=== PATIENT | male | born 1960 | race African-American/Black ===

== ENCOUNTER 2023-05-01 14:29 | Emergency (ER) | payer BC, SELFPAY | END 2023-05-01 15:09 | disposition home or self-care (01) | LOC: CSHERS 14:29 | DX: R51.9 Headache, unspecified (principal); I10 Essential (primary) hypertension; F17.210 Nicotine dependence, cigarettes, uncomplicated | CPT/HCPCS: 99283 ==

== ENCOUNTER 2023-06-23 14:40 | Emergency (ER) | payer OTHER ==
[~2023-06-23 14:40] MED LIST: Iopamidol 370 76% 100 ML VIAL ONE
[2023-06-23 15:21] LABS: #Monocytes 0.5 10x3/uL (0.0-1.1); #Neutrophils 9.2 10x3/uL (1.5-8.4); %Basophils 0.4 % (0.0-2.0); %Eosinophils 0.4 % (0.0-6.0); %Lymphocytes 14.2 % (18.0-47.0); %Monocytes 4.2 % (0.0-10.0); %Neutrophils 80.4 % (40.0-75.0); Hematocrit 42.6 % (38.8-50.0); Hemoglobin 15.7 g/dL (13.5-17.5); Mean Corpuscular HGB CONC 36.9 g/dL (32.0-36.0); Mean Corpuscular Hemoglobin 29.7 pg (27.0-33.0); Mean Corpuscular Volume 80.5 fl (81.2-95.1); Mean Platelet Volume 11.4 fl (7.4-10.4); Platelet Count 111 10x3/uL (150-450); RBC Distribution Width 14.9 % (11.5-14.5); Red Blood Cell (RBC) Count 5.29 10x6/uL (4.32-5.72); White Blood Cell (WBC) Count 11.4 10x3/uL (3.5-10.5)
[2023-06-23 15:26] LABS: ALT (SGPT) 21 U/L (8-55); AST (SGOT) 26 U/L (5-34); Albumin 4.9 g/dL (3.4-4.8); Alcohol Less than 10.0 mg/dL (Less than 10); Alkaline Phosphatase 70 U/L (40-110); Anion Gap 18 mmol/L (10-20); BUN (Urea Nitrogen) 12 mg/dL (8.4-25.7); Bilirubin, Total 1.4 mg/dL (0.2-1.2); Calc. Creatinine Clearance 0 mL/min (70-130); Calcium 10.8 mg/dL (7.8-10.44); Carbon Dioxide 21 mmol/L (23-31); Chloride 104 mmol/L (98-107); Estimated GFR 91; Globulin 3.7 g/dL (2.4-3.5); Glucose 149 mg/dL (80-115); Lipase 46 U/L (8-78); Magnesium 1.9 mg/dL (1.6-2.6); Potassium 4.7 mmol/L (3.5-5.1); Protein, Total 8.6 g/dL (5.8-8.1); Sodium 138 mmol/L (136-145)
[2023-06-23 15:32] LABS: Troponin I Less than 0.010 ng/mL (< 0.028)
[2023-06-23] MEDS ORDERED: Ondansetron PF 4 MG/2 ML Vial ONE ×2 (15:57→16:26)
[2023-06-23] MEDS ORDERED: Morphine 4 MG/ML VIAL ONE ×2 (15:57→17:02)
[2023-06-23] MEDS ORDERED: hydrALAZINE 20 MG/ML VIAL ONE (17:03)
[2023-06-23 17:09] LABS: Platelet Adequacy Comment PLT clumps seen-ADEQ; Platelet Clumps MODERATE
[2023-06-23] MEDS ORDERED: HYDROcodone/Acetaminophen 10/325 mg Tablet ONE (18:49)
== END 2023-06-23 19:05 | disposition home or self-care (01) ==
LOC: CSHERS 14:40
DX: K86.1 Other chronic pancreatitis (principal); F14.10 Cocaine abuse, uncomplicated; R11.2 Nausea with vomiting, unspecified; I10 Essential (primary) hypertension; F17.210 Nicotine dependence, cigarettes, uncomplicated
CPT/HCPCS: 36415; 36416; 71045; 71275; 74174; 80053; 80307; 83605; 83690; 83735; 83880; 84484; 85025; 87040; 93005; 94760; 96374; 96375; 96376; J0360; J2270; J2405; Q9967

== ENCOUNTER 2023-06-25 13:18 | Emergency (ER) | payer OTHER ==
[2023-06-25] MEDS ORDERED: Ondansetron PF 4 MG/2 ML Vial ONE (14:11)
[2023-06-25] MEDS ORDERED: Morphine 4 MG/ML VIAL ONE (14:12)
[2023-06-25 14:22] LABS: Hemoglobin 16.1 g/dL (13.5-17.5); MDiff Complete? YES; Mean Corpuscular HGB CONC 36.6 g/dL (32.0-36.0); Mean Corpuscular Hemoglobin 29.5 pg (27.0-33.0); Mean Corpuscular Volume 80.6 fl (81.2-95.1); Mean Platelet Volume 10.7 fl (7.4-10.4); Platelet Count 282 10x3/uL (150-450); Red Blood Cell (RBC) Count 5.46 10x6/uL (4.32-5.72)
[2023-06-25 14:46] LABS: ALT (SGPT) 21 U/L (8-55); AST (SGOT) 32 U/L (5-34); Albumin 4.8 g/dL (3.4-4.8); Alkaline Phosphatase 73 U/L (40-110); Anion Gap 17 mmol/L (10-20); BUN (Urea Nitrogen) 21 mg/dL (8.4-25.7); Bilirubin, Total 1.9 mg/dL (0.2-1.2); Calc. Creatinine Clearance 0 mL/min (70-130); Calcium 10.5 mg/dL (7.8-10.44); Carbon Dioxide 20 mmol/L (23-31); Chloride 104 mmol/L (98-107); Estimated GFR 90; Glucose 109 mg/dL (80-115); Lipase 30 U/L (8-78); Potassium 4.2 mmol/L (3.5-5.1); Protein, Total 8.8 g/dL (5.8-8.1); Sodium 137 mmol/L (136-145)
[2023-06-25 14:55] LABS: Lymphocytes 35 % (21-51); Monocytes 16 % (0-10); Neutrophil 49 % (42-75)
[2023-06-25 15:01] LABS: Microcytosis MODERATE=15-30 cells (100X) (0-5/hpf); Stomatocytes SLIGHT = 2-5 cells (100X) (0-1/hpf)
[2023-06-25 15:03] LABS: Large Platelets SLIGHT (None Seen); Platelet Adequacy Comment Appears Adequate; Smudge Cells SLIGHT
[2023-06-25 16:49] LABS: SARS-CoV-2 NAA Rapid Test Not Detected (NotDetected)
[2023-06-25 17:45] LABS: Bilirubin Neg (Negative); Blood, Urine 150 (Negative); Clarity Clear (Clear); Glucose, Urine (Dipstick) Normal (Negative); Ketone, Urine Negative (Negative); Leukocyte Negative (Negative); Nitrite Negative (Negative); Protein, Urine (Dipstick) 500 mg/dl (Neg-Trace); Specific Gravity, Urine 1.025 (1.005-1.030)
[2023-06-25 17:57] LABS: CAUTI Indications for Culture Pelvic or flank pain; Squamous Epithelial 0-3 HPF (0-3); WBC/HPF 0-3 HPF (0-3)
[2023-06-25 17:58] LABS: Bacteria/HPF Rare-Few HPF (None Seen); Urine Culture Reflex No No
== END 2023-06-25 18:10 | disposition home or self-care (01) ==
LOC: CSHERS 13:18
DX: K86.1 Other chronic pancreatitis (principal); I10 Essential (primary) hypertension; E03.9 Hypothyroidism, unspecified; F17.210 Nicotine dependence, cigarettes, uncomplicated
CPT/HCPCS: 80053; 81001; 83690; 85025; 93005; 96361; 96374; 96375; J2270; J2405

== ENCOUNTER 2023-08-15 07:36 | Emergency (ER) | payer BC, OTHER ==
[2023-08-15 09:05] LABS: #Basophils 0.1 10x3/uL (0.0-0.2); #Monocytes 1.4 10x3/uL (0.0-1.1); #Neutrophils 7.4 10x3/uL (1.5-8.4); %Basophils 0.6 % (0.0-2.0); %Eosinophils 0.1 % (0.0-6.0); %Lymphocytes 7.2 % (18.0-47.0); %Monocytes 14.9 % (0.0-10.0); Hematocrit 43.2 % (38.8-50.0); Mean Corpuscular Hemoglobin 30.4 pg (27.0-33.0); Mean Platelet Volume 10.9 fl (7.4-10.4); Platelet Count 206 10x3/uL (150-450); RBC Distribution Width 14.6 % (11.5-14.5); Red Blood Cell (RBC) Count 5.27 10x6/uL (4.32-5.72); White Blood Cell (WBC) Count 9.6 10x3/uL (3.5-10.5)
[2023-08-15 09:22] LABS: Troponin I 0.013 ng/mL (< 0.028)
[2023-08-15 09:27] LABS: ALT (SGPT) 18 U/L (8-55); AST (SGOT) 34 U/L (5-34); Albumin 4.7 g/dL (3.4-4.8); Alkaline Phosphatase 67 U/L (40-110); Anion Gap 16 mmol/L (10-20); BUN (Urea Nitrogen) 12 mg/dL (8.4-25.7); Bilirubin, Total 1.6 mg/dL (0.2-1.2); Calc. Creatinine Clearance 0 mL/min (70-130); Calcium 9.9 mg/dL (7.8-10.44); Carbon Dioxide 24 mmol/L (23-31); Chloride 100 mmol/L (98-107); Estimated GFR 81; Globulin 3.6 g/dL (2.4-3.5); Glucose 90 mg/dL (80-115); Lipase 41 U/L (8-78); Potassium 4.7 mmol/L (3.5-5.1); Protein, Total 8.3 g/dL (5.8-8.1); Sodium 135 mmol/L (136-145)
[2023-08-15] MEDS ORDERED: Pantoprazole 40 MG VIAL ONE (09:35)
[2023-08-15] MEDS ORDERED: Metoclopramide HCl 10 MG (2 mL) VIAL ONE (09:35)
[2023-08-15] MEDS ORDERED: Famotidine/PF 20 mg/2ml Vial ONE (09:35)
[2023-08-15] MEDS ORDERED: Lisinopril 10 MG TAB PO SCH (10:30)
== END 2023-08-15 12:01 | disposition home or self-care (01) ==
LOC: CSHERS 07:36
DX: R10.13 Epigastric pain (principal); I10 Essential (primary) hypertension; E80.7 Disorder of bilirubin metabolism, unspecified; F17.210 Nicotine dependence, cigarettes, uncomplicated; Z55.6 Problems related to health literacy
CPT/HCPCS: 36415; 74177; 80053; 83690; 84484; 85025; 93005; 96374; 96375; C9113; J2765; S0028